=== PATIENT | female | born 1960 | race Caucasian/White ===

== ENCOUNTER → 2016-05-16 | Outpatient (CLI) | payer OTHER | LOC: KOH-I 05-10 10:00 | DX: R10.11 Right upper quadrant pain (principal); K76.0 Fatty (change of) liver, not elsewhere classified | CPT/HCPCS: 76705 ==

== ENCOUNTER 2016-08-21 11:45 | Emergency (ER) | payer OTHER ==
[2016-08-21 12:08] LABS: HEMOGLOBIN 14.2 gm/dl (12.3-15.3); RED BLOOD COUNT 4.67 M/UL (4.00-5.10); WHITE BLOOD COUNT 9.7 K/UL (4.5-11.0)
[2016-08-21 12:31] LABS: BUN/CREATININE RATIO 25 (0-10)
== END 2016-08-21 13:43 | disposition home or self-care (01) ==
LOC: ER1 11:45
PROVIDERS: Family Medicine
DX: R07.89 Other chest pain (principal); F41.9 Anxiety disorder, unspecified
CPT/HCPCS: 36415; 71010; 80053; 82550; 82553; 83874; 84484; 85025; 85379; 93005; 96374; 99285; J1885

== ENCOUNTER → 2020-07-11 | Outpatient (CLI) | payer OTHER | LOC: EXRD 11:30 | DX: Z11.59 Encounter for screening for other viral diseases (principal) | CPT/HCPCS: 73130 ==